=== PATIENT | male | born 1960 | race Caucasian/White ===

== ENCOUNTER → 2023-02-04 11:58 | Outpatient (CLI) | payer OTHER, SELFPAY ==
--- NOTE | 2023-02-04 12:00 | DI.CT.S_ITS ---
PROCEDURE: CT IVP A/P W/WO INDICATIONS: hematuria TECHNIQUE: Optional 5 mm thick noncontrast images acquired from the diaphragm to the symphysis pubis. After the administration of intravenous contrast, 5 mm thick images acquired from the diaphragm to the symphysis pubis after a 10-minute delay. 2 mm thick coronal and sagittal reformats were then performed of the kidneys and ureters. For radiation dose reduction, the following was used: automated exposure control, adjustment of mA and/or kV according to patient size. COMPARISON: None. FINDINGS: Image quality: Excellent. Lung bases: Lung bases are clear. Heart size is normal. Urinary system: Both kidneys are normal in size, without hydronephrosis. 8 x 2 millimeter curvilinear calcification in the left-sided renal collecting system. 5 millimeter nonobstructing stone in the inferior calyx of the right collecting system ([address]). No complex renal cystic lesions which require follow-up.. No perinephric fat stranding. There is normal bilateral renal enhancement. Renal calyces appear normal in morphology when filled with contrast. Opacified portions of both ureters demonstrate normal caliber. Bladder wall thickness is normal. No calcified bladder stones. Other solid organs: Liver is normal in size and enhancement. Scattered subcentimeter hypoattenuating liver lesions, too small to characterize by CT but probably small cysts. Gallbladder is mildly contracted . Biliary system is non dilated. Pancreas enhances normally. Spleen is normal in size and enhancement. No adrenal nodules. Peritoneum and bowel: Bowel loops demonstrate normal wall thickness and caliber. No free fluid or air. Colonic diverticulosis without evidence of diverticulitis. Tiny hiatal hernia. Nodes and vessels: No retroperitoneal or mesenteric adenopathy by size criteria. Aorta and inferior vena cava are normal in size. Abdominal wall: No ventral hernias. Enhancing soft tissue nodule measuring 1.8 centimeter in the upper midline subcutaneous abdominal wall (series 2, image 19). Ventral injection granulomas. Pelvis: No pathologic free pelvic fluid. Fat within the inguinal canals. Simple appearing lipoma in the scrotal wall measuring 4.6 centimeter. Bones: No suspicious bony lesions. No vertebral body compression fractures. IMPRESSION: Bilateral nonobstructing nephrolithiasis. No filling defects within the opacified renal collecting systems or ureters. Bladder incompletely distended with contrast. Enhancing soft tissue nodularity within the upper midline subcutaneous abdominal wall measuring 1.8 centimeters. Consider sonographic evaluation for further evaluation. Scrotal wall lipoma measuring 4.6 centimeters. Small inguinal hernias containing fat. Dictated by: Watson Alvarez M.D. on 02/04/2023 at 15:45 Approved by: Watson Alvarez M.D. on 02/04/2023 at 15:53
--- NOTE | 2023-02-04 12:00 | DI.US.S_ITS ---
PROCEDURE: US SCROTUM INDICATIONS: RIGHT SUPERIOR SCROTUM LUMP AND HEMATURIA TECHNIQUE: Real-time scanning was performed of the scrotum and testicles, with image documentation. Color and pulse Doppler interrogation was performed of both testicles. COMPARISON: None. FINDINGS: Right: Testicle is normal in size at 4.7 x 2.4 x 2.3 cm, and homogenous in echotexture. Multiple punctate echogenic foci within the epididymis, largest in the tail measuring 1 millimeter. No hydrocele or varicoceles. Overlying scrotal skin is thickened measuring 7 millimeters. In the right scrotum, there is a 5.9 x 2.5 x 4.6 centimeter mildly hyperechoic homogeneous lesion. When compared to same day CT, this appears to be a fat containing lesion. Left: Testicle is normal in size at 5.0 x 1.9 cm, and homogeneous in echotexture. Multiple left epididymal head cysts with the largest measuring 4 millimeters. No hydrocele or varicoceles. Overlying scrotal skin is thickened measuring 7 millimeters. Doppler: Color and pulse Doppler demonstrate normal and symmetric arterial flow in both testicles. IMPRESSION: 1. In the right scrotum, there is a homogeneous mildly hyperechoic lesion measuring up to 5.9 centimeters. When compared to same day CT, this appears to be a fatty lesion, likely a lipoma. Recommend correlation with physical exam and close follow-up. If evidence of interval growth, MRI could be obtained for further evaluation. 2. The testes are normal in size and appearance. Echogenic foci within the right epididymis, largest measuring 1 millimeter in the tail, may represent calcification. Left epididymal head simple cysts. 3. Nonspecific scrotal wall thickening, correlate with fluid status. Dictated by: Carlos A Little M.D. on 02/04/2023 at 15:07 Approved by: Carlos A Little M.D. on 02/04/2023 at 15:18
[2023-02-04 13:30] LABS: BUN Creatinine Ratio 19.8 (6-22); Blood Urea Nitrogen 16 mg/dL (9-20); Calcium 8.7 mg/dL (8.4-10.2); Carbon Dioxide 26 mmol/L (22-32); Chloride 105 mmol/L (98-107); Estimated Glomerular Filt Rate > 60 mL/min (>60); Glucose 131 mg/dL (80-110); HEMOLYSIS < 15 (0-50); Potassium 3.5 mmol/L (3.4-5.1); Sodium 139 mmol/L (137-145)
[2023-02-05 08:47] LABS: PSA Free % 18.6 % (.); PSA, Total 2.8 ng/mL (0.0-4.0)
== END ==
PROVIDERS: PCP Nurse Practitioner Family; Referring Provider Specialist; Visit Provider Specialist
DX: Z01.812 Encounter for preprocedural laboratory examination (principal); N50.3 Cyst of epididymis; R31.9 Hematuria, unspecified; D17.72 Benign lipomatous neoplasm of other genitourinary organ; K40.90 Unilateral inguinal hernia, without obstruction or gangrene, not specified as recurrent; R19.09 Other intra-abdominal and pelvic swelling, mass and lump; R97.20 Elevated prostate specific antigen [PSA]; N20.0 Calculus of kidney
CPT/HCPCS: 36415; 74178; 76870; 80048; 84153; 84154; 93975

== ENCOUNTER → 2023-02-10 14:11 | Outpatient (CLI) | payer OTHER, SELFPAY | PROVIDERS: PCP Nurse Practitioner Family; Visit Provider Specialist | DX: D29.4 Benign neoplasm of scrotum (principal); R31.9 Hematuria, unspecified; Z80.42 Family history of malignant neoplasm of prostate | CPT/HCPCS: 52000; 81002; 87077; 87086; 87186; 99215 ==